=== PATIENT | female | born 1995 | race African-American/Black ===

== ENCOUNTER 2017-11-11 18:49 | Emergency (ER) | payer OTHER, SELFPAY ==
[2017-11-11] MEDS: CETIRIZINE (ZyrTEC) 10 MG TAB PO (19:53)
== END 2017-11-11 20:56 | disposition home or self-care (01) ==
LOC: M ED 18:49
DX: L20.9 Atopic dermatitis, unspecified (principal); J30.2 Other seasonal allergic rhinitis; F17.200 Nicotine dependence, unspecified, uncomplicated; Z79.899 Other long term (current) drug therapy
CPT/HCPCS: 99283